=== PATIENT | female | born 1980 | race Caucasian/White ===

== ENCOUNTER → 2017-04-16 | Outpatient (CLI) | payer MEDICARE, MEDICAID, OTHER ==
[~2017-04-16] MED LIST: ACIPHEX; ADDERALL30 MG PO; ASPIR-LOW81 MG PO; ATIVAN0.5 MG PO; BENICAR; CARAFATE 1GM1 G PO; DEXILANT; FOLIC ACID 11 MG/TA1 PO; GLUCOPHAGE; GLUCOPHAGE500 MG/TAB PO; LAMICTAL; LAMICTAL150 MG PO; LEVEMIR100 U/ML SQ; LEVOXYL0.1 MG PO; MOTRIN 600600 MG/TAB PO; NEXIUM 40MG40 MG PO; NORCO 325 MG-51 TAB PO; NOVOLOG 100U100 U/M1 SQ; PERCOCET 325 MG1 TA2 PO; PERCR 7.5 PO; PRENATAL1 TA2 PO; PRILOSEC 20MG20 MG PO; PROTONIX20 MG PO; SYNTHROID 0.10.15 MG PO; TRIAMCINOLONE A15 GM TP; XYREM500 MG/ML PO
== END ==
LOC: BHSO 12:00
DX: F90.0 Attention-deficit hyperactivity disorder, predominantly inattentive type (principal)

== ENCOUNTER → 2017-05-28 | Outpatient (CLI) | payer MEDICARE, MEDICAID, OTHER | LOC: BHSO 11:42 | DX: F31.73 Bipolar disorder, in partial remission, most recent episode manic (principal) ==

== ENCOUNTER → 2017-06-03 | Outpatient (CLI) | payer MEDICARE, MEDICAID | LOC: COL.RAD 12:11 | DX: Z08 Encounter for follow-up examination after completed treatment for malignant neoplasm (principal); E89.0 Postprocedural hypothyroidism; Z85.850 Personal history of malignant neoplasm of thyroid ==

== ENCOUNTER → 2017-07-23 | Outpatient (CLI) | payer MEDICARE, MEDICAID | LOC: BHSO 09:45 | DX: F31.73 Bipolar disorder, in partial remission, most recent episode manic (principal) ==

== ENCOUNTER → 2017-08-28 | Outpatient (CLI) | payer MEDICARE, MEDICAID | LOC: COL.RAD 09:30 | DX: R91.1 Solitary pulmonary nodule (principal) | CPT/HCPCS: Q9967 ==

== ENCOUNTER → 2017-09-17 | Outpatient (CLI) | payer MEDICARE, MEDICAID | LOC: BHSO 10:30 | DX: F31.73 Bipolar disorder, in partial remission, most recent episode manic (principal) ==

== ENCOUNTER → 2017-09-26 | Outpatient (CLI) | payer MEDICARE, MEDICAID | LOC: COL.RAD 11:15 | DX: K82.8 Other specified diseases of gallbladder (principal); K21.9 Gastro-esophageal reflux disease without esophagitis ==

== ENCOUNTER → 2017-10-09 | Outpatient (CLI) | payer MEDICARE, MEDICAID ==
[2017-10-09 12:44] LABS: BASO # 0.1 (0.0-0.2); EOS # 0.2 (0.0-0.7); EOS % 3.5 % (0-4.0); GRAN # 2.5 (1.4-6.5); GRAN % 49.4 % (42.2-75.2); HEMATOCRIT 38.7 % (37.0-47.0); HEMOGLOBIN 12.6 g/dl (12.5-16.0); LYMPH # 2.1 (1.2-3.4); LYMPH % 40.5 % (20.0-51.0); MEAN CELL VOLUME 87 fl (80.0-100.0); MEAN CORPUSCULAR HEMOGLOBIN 28 pg (27.0-31.0); MEAN CORPUSCULAR HGB CONC 33 g/dl (33.0-37.0); MEAN PLATELET VOLUME 10.2 fl (7.4-10.4); MONO # 0.3 (0.1-0.6); MONO % 5.4 % (1.7-9.3); PLATELET COUNT 258 K/mm3 (130-400); RED BLOOD COUNT 4.46 M/mm3 (4.10-5.30); WHITE BLOOD COUNT 5.1 K/mm3 (4.8-10.8)
[2017-10-09 13:12] LABS: THYROXINE (T4)-TOTAL 17.6 ug/dL (5.5-11.0)
[2017-10-09 13:25] LABS: THYROID STIMULATING HORMONE 0.501 uIU/mL (0.465-4.680)
== END ==
LOC: COL.LAB 11:50
PROVIDERS: Internal Medicine
DX: E61.1 Iron deficiency (principal); E55.9 Vitamin D deficiency, unspecified; L65.9 Nonscarring hair loss, unspecified

== ENCOUNTER → 2017-10-17 | Outpatient (CLI) | payer MEDICARE, MEDICAID | LOC: BHSO 10:59 | DX: F31.73 Bipolar disorder, in partial remission, most recent episode manic (principal) ==

== ENCOUNTER → 2017-12-12 | Outpatient (CLI) | payer MEDICARE, MEDICAID | LOC: COL.LAB 10:54 | DX: C73 Malignant neoplasm of thyroid gland (principal) ==

== ENCOUNTER → 2017-12-19 | Outpatient (CLI) | payer MEDICARE, MEDICAID | LOC: BHSO 11:27 | DX: F31.73 Bipolar disorder, in partial remission, most recent episode manic (principal) | CPT/HCPCS: G0463 ==

== ENCOUNTER → 2018-03-12 | Outpatient (CLI) | payer MEDICARE, MEDICAID | LOC: BHSO 11:11 | DX: F31.81 Bipolar II disorder (principal) | CPT/HCPCS: G0463 ==

== ENCOUNTER 2018-04-28 20:05 | Emergency (ER) | payer MEDICARE, MEDICAID ==
[~2018-04-28] VITALS: Ht 165.1 cm; Wt 77.3 kg
[2018-04-28 20:08] VITALS: TEMP 98.1
[2018-04-28 22:03] VITALS: BP 120/70; PULSE 76
== END 2018-04-28 22:04 | disposition home or self-care (01) ==
LOC: COL.ER 20:05
DX: R13.10 Dysphagia, unspecified (principal); K21.9 Gastro-esophageal reflux disease without esophagitis; Z79.84 Long term (current) use of oral hypoglycemic drugs; Z85.850 Personal history of malignant neoplasm of thyroid

== ENCOUNTER → 2018-05-16 | Outpatient (CLI) | payer MEDICARE, MEDICAID | LOC: BHSO 11:25 | DX: F31.81 Bipolar II disorder (principal) | CPT/HCPCS: G0463 ==

== ENCOUNTER → 2018-06-09 | Outpatient (CLI) | payer MEDICARE, MEDICAID | LOC: COL.LAB 11:43 | DX: C73 Malignant neoplasm of thyroid gland (principal) ==

== ENCOUNTER → 2018-11-13 | Outpatient (CLI) | payer MEDICARE, MEDICAID | LOC: BHSO 10:48 | DX: F31.81 Bipolar II disorder (principal) ==

== ENCOUNTER → 2019-02-12 | Outpatient (CLI) | payer MEDICARE, MEDICAID, OTHER | LOC: BHSO 11:02 | DX: F31.81 Bipolar II disorder (principal) | CPT/HCPCS: G0463 ==

== ENCOUNTER → 2019-05-19 | Outpatient (CLI) | payer MEDICARE, MEDICAID | LOC: BHSO 11:47 | DX: F43.10 Post-traumatic stress disorder, unspecified (principal) | CPT/HCPCS: G0463 ==

== ENCOUNTER → 2019-07-15 | Outpatient (CLI) | payer MEDICARE, MEDICAID | LOC: COL.RAD 10:30 | DX: R10.11 Right upper quadrant pain (principal); Z85.850 Personal history of malignant neoplasm of thyroid; Z90.89 Acquired absence of other organs ==

== ENCOUNTER → 2019-09-07 | Outpatient (CLI) | payer MEDICARE, MEDICAID | LOC: BHSO 09:24 | DX: F43.10 Post-traumatic stress disorder, unspecified (principal) | CPT/HCPCS: G0463 ==

== ENCOUNTER → 2019-12-07 | Outpatient (CLI) | payer MEDICARE, MEDICAID | LOC: BHSO 10:05 | DX: F43.10 Post-traumatic stress disorder, unspecified (principal) | CPT/HCPCS: G0463 ==

== ENCOUNTER → 2020-01-14 | Outpatient (CLI) | payer MEDICARE, MEDICAID | LOC: MC.RAD 16:00 | DX: Z12.31 Encounter for screening mammogram for malignant neoplasm of breast (principal) ==

== ENCOUNTER → 2020-04-20 | Outpatient (CLI) | payer MEDICARE, MEDICAID | LOC: COL.RAD 10:11 | DX: R10.11 Right upper quadrant pain (principal) | CPT/HCPCS: A9537; J2805 ==

== ENCOUNTER 2022-07-10 12:45 | Outpatient (RCR) | payer MEDICARE, MEDICAID | END 2022-07-11 | disposition home or self-care (01) | LOC: MKS.ESL.PT | DX: M66.362 Spontaneous rupture of flexor tendons, left lower leg (principal) ==

== ENCOUNTER → 2022-12-21 | Outpatient (CLI) | payer MEDICARE, MEDICAID | LOC: COL.RAD 14:14 | DX: R16.0 Hepatomegaly, not elsewhere classified (principal); K82.9 Disease of gallbladder, unspecified ==